=== PATIENT | male | born 1985 | race Caucasian/White ===

== ENCOUNTER 2018-12-13 22:23 | Emergency (ER) | payer MEDICAID ==
[~2018-12-13] VITALS: Ht 175.3 cm; Wt 74.8 kg
[~2018-12-13 22:23] MED LIST: IBUP800 PO; OXYACE5T PO
[2018-12-13 23:24] LABS: BASOPHILS ABSOLUTE AUTO 0.02 K/mm3 (0.00-0.23); BASOPHILS PERCENT AUTO 0 % (0-2); EOSINOPHILS ABSOLUTE AUTO 0.01 K/mm3 (0.00-0.68); EOSINOPHILS PERCENT AUTO 0 % (0-6); Hematocrit 46.8 % (37.0-53.0); Hemoglobin 15.7 g/dL (13.5-17.5); IMMATURE GRAN ABSOLUTE AUTO 0.02 K/mm3 (0.00-0.10); IMMATURE GRAN PERCENT AUTO 0 % (0-1); LYMPHOCYTES ABSOLUTE AUTO 0.59 K/mm3 (0.84-5.20); LYMPHOCYTES PERCENT AUTO 7 % (21-46); MONOCYTES ABSOLUTE AUTO 0.76 K/mm3 (0.16-1.47); MONOCYTES PERCENT AUTO 9 % (4-13); Mean Corpuscular HGB 29.7 pg (26.0-34.0); Mean Corpuscular HGB Conc 33.5 g/dL (31.5-36.5); Mean Corpuscular Volume 89 fL (80-100); NEUTROPHILS ABSOLUTE AUTO 7.23 K/mm3 (1.96-9.15); NEUTROPHILS PERCENT AUTO 84 % (41-73); Platelet Count 182 K/mm3 (150-400); RDW Coefficient Variation 12.4 % (11.7-14.2); RDW Standard Deviation 40.6 fL (35.1-46.3); Red Blood Cell Count 5.29 M/mm3 (4.30-5.90); White Blood Cell Count 8.63 K/mm3 (4.00-11.30)
[2018-12-13 23:40] LABS: Alanine Aminotransfer (ALT/SGP 28 U/L (12-78); Albumin, Blood 4.1 g/dL (3.4-5.0); Albumin/Globulin Ratio 1.1 (0.8-1.8); Alk Phos 96 U/L (50-136); Anion Gap 10 mmol/L (6-16); Aspartate Aminotrans (AST/SGOT 23 U/L (12-37); Bilirubin, Total 0.5 mg/dL (0.1-1.0); Blood Urea Nitrogen 13 mg/dL (8-24); Bun/Creatinine Ratio 15.7 (12.0-20.0); CO2, Blood 24 mmol/L (21-32); Calcium, Blood 9.3 mg/dL (8.5-10.1); Chloride, Blood 104 mmol/L (98-108); Creatinine, Blood 0.83 mg/dL (0.60-1.20); Globulin, Blood 3.9 g/dL (2.2-4.0); Glomerular Filtration Rate >60 (60-); Glucose, Blood 89 mg/dL (70-99); Potassium, Blood 3.8 mmol/L (3.5-5.5); Sodium, Blood 138 mmol/L (136-145)
[2018-12-14] MEDS ORDERED: ONDA4ODT MM (00:09)
== END 2018-12-14 00:39 | disposition home or self-care (01) ==
LOC: ER 22:23
PROVIDERS: Emergency Medicine
DX: K40.90 Unilateral inguinal hernia, without obstruction or gangrene, not specified as recurrent (principal); R11.2 Nausea with vomiting, unspecified; R19.7 Diarrhea, unspecified; F17.210 Nicotine dependence, cigarettes, uncomplicated
CPT/HCPCS: 36415; 80053; 83690; 85025; 96361; 96374; 96375; 99283-25; J1885; J2405; J7030

== ENCOUNTER 2019-08-23 19:16 | Emergency (ER) | payer OTHER ==
[~2019-08-23] VITALS: Ht 177.8 cm; Wt 74.8 kg
[~2019-08-23 19:16] MED LIST changes: +ONDA4ODT MM
[2019-08-23] MEDS ORDERED: Keflex500 MG PO (20:50)
== END 2019-08-23 21:07 | disposition home or self-care (01) ==
LOC: ER 19:16
DX: S61.243A Puncture wound with foreign body of left middle finger without damage to nail, initial encounter (principal); S61.213A Laceration without foreign body of left middle finger without damage to nail, initial encounter; F17.210 Nicotine dependence, cigarettes, uncomplicated; W27.3XXA Contact with needle (sewing), initial encounter
CPT/HCPCS: 10120; 73140; 99283-25; A9270-GY

== ENCOUNTER 2021-11-01 08:29 | Emergency (ER) | payer OTHER ==
[~2021-11-01] VITALS: Ht 175.3 cm; Wt 77.1 kg
[~2021-11-01 08:29] MED LIST changes: +Keflex500 MG PO; +METAMUCIL660 G1 PO
== END 2021-11-01 09:51 | disposition home or self-care (01) ==
LOC: ER 08:29
DX: J06.9 Acute upper respiratory infection, unspecified (principal); Z20.822 Contact with and (suspected) exposure to COVID-19; F17.210 Nicotine dependence, cigarettes, uncomplicated
CPT/HCPCS: 99284

== ENCOUNTER 2025-05-06 19:18 | Emergency (ER) | payer OTHER ==
[~2025-05-06] VITALS: Ht 180.3 cm; Wt 83.9 kg
[2025-05-06 19:32] VITALS: BP 132/89
[2025-05-06] MEDS ORDERED: BUPROPION XL150 M1 PO (20:18)
[2025-05-06] MEDS ORDERED: AMOCLA875 PO (21:20)
[2025-05-06] MEDS ORDERED: Ketorolac Tromethamine 15mg Vial IM ONE (21:20)
== END 2025-05-06 21:34 | disposition home or self-care (01) ==
LOC: ER 19:18
DX: K08.89 Other specified disorders of teeth and supporting structures (principal); F17.210 Nicotine dependence, cigarettes, uncomplicated; Z79.899 Other long term (current) drug therapy
CPT/HCPCS: 96372; 99282-25; A9270; J1885